=== PATIENT | male | born 1980 | race Caucasian/White ===

== ENCOUNTER 2025-09-29 00:40 | Emergency (ER) | payer OTHER ==
[~2025-09-29] VITALS: Ht 182.9 cm; Wt 81.6 kg
[2025-09-29 01:59] LABS: PLATELET COUNT (AUTO) 285 K/uL (152-348); RED BLOOD CELL COUNT(AUTO) 5.71 MIL/uL (4.06-5.63); RED CELL DISTRIBUTION WIDTH 12.9 % (12.1-16.2); WHITE BLOOD COUNT (AUTO) 11.7 K/uL (3.6-10.2)
[2025-09-29] MEDS ORDERED: METOCLOPRAMIDE HCL 10 MG/2 ML VIAL ONE (02:00)
[2025-09-29] MEDS: IV NORMAL SALINE 1000 ML BAG IV ONE (02:01)
[2025-09-29] MEDS ORDERED: MORPHINE SULFATE 4 MG/1 ML DISP.SYRIN ONE (02:01)
[2025-09-29] MEDS: MORPHINE SULFATE 4 MG/1 ML DISP.SYRIN IV ONE (02:03)
[2025-09-29] MEDS: METOCLOPRAMIDE HCL 10 MG/2 ML VIAL IV ONE (02:03)
[2025-09-29 02:06] LABS: CREATININE 1.2 mg/dL (0.6-1.3); SODIUM SERUM 140.0 mmol/L (136-145); UREA NITROGEN, BLOOD 22.0 mg/dL (7-18)
[2025-09-29 02:13] LABS: ASPARTATE AMINOTRANSFERASE 43.0 U/L (15-37); TOTAL PROTEIN, SERUM 8.4 g/dL (6.4-8.2)
[2025-09-29] MEDS ORDERED: diphenhydrAMINE 50 MG/1 ML VIAL ONE (02:37)
[2025-09-29] MEDS ORDERED: IOHEXOL 300MG/ML 100 ML INFUS..BTL ONE (02:45)
[2025-09-29] MEDS: diphenhydrAMINE 50 MG/1 ML VIAL IV ONE (02:46)
[2025-09-29 03:01] LABS: LYMPHOCYTES % (MANUAL) 21 % (20-40); NEUTROPHILS % (MANUAL) 67 % (42-75)
[2025-09-29 03:02] LABS: EOSINOPHILS % (MANUAL) 1 % (0-8); PLATELET ESTIMATE ADEQUATE
[2025-09-29 03:03] LABS: MONOCYTES % (MANUAL) 11 % (2-10)
[2025-09-29 08:05] VITALS: BP 137/95
[2025-09-29] MEDS: IV NS 1000 ML 1,000 ML IV ONE ×3 (08:12→10:58)
[2025-09-29] MEDS ORDERED: ONDANSETRON 4 MG/2 ML VIAL ONE (08:17)
[2025-09-29] MEDS: ONDANSETRON 4 MG/2 ML VIAL IV ONE (08:19)
[2025-09-29] MEDS ORDERED: PROCHLORPERAZINE EDISYLATE 10 MG/2 ML VIAL ONE (09:36)
[2025-09-29] MEDS: PROCHLORPERAZINE EDISYLATE 10 MG/2 ML VIAL IV ONE (09:38)
[2025-09-29] MEDS ORDERED: PEDIATRIC ORAL ELECTROLYTE 237 ML BOTTLE ONE (11:03)
[2025-09-29] MEDS: PEDIATRIC ORAL ELECTROLYTE 237 ML BOTTLE PO ONE (11:11)
[2025-09-29] MEDS ORDERED: PROC10TA29 PO (11:31)
[2025-09-29 11:56] VITALS: BP 144/96; O2SAT 97
== END 2025-09-29 11:56 | disposition home or self-care (01) ==
LOC: ER 00:56
DX: A08.8 Other specified intestinal infections (principal); E86.0 Dehydration; F12.90 Cannabis use, unspecified, uncomplicated; F17.200 Nicotine dependence, unspecified, uncomplicated; Z87.19 Personal history of other diseases of the digestive system
CPT/HCPCS: 99285; 74177; 96374; 96375; 96361; 80076; 80048; 83690; 85007; 85027; J1200; J2765; J2405; Q9967; J0780; J2270; J7040 ×3; 70030-TC; A4606; A4663